=== PATIENT | female | born 2000 | race Caucasian/White ===

== ENCOUNTER 2020-01-28 11:48 | Inpatient (IN) ==
[2020-01-28] MEDS ORDERED: MEPERIDINE 50 MG/1 ML VIAL IV PRN (12:00)
[2020-01-28] MEDS ORDERED: miSOPROStoL 200 MCG TABLET PO ONE (12:18)
[2020-01-28] MEDS: LACTATED RINGERS 1,000 ML IV SCH ×2 (12:40→16:58)
[2020-01-28 12:49] LABS: Hematocrit 34.4 VOL% (35.7-47.0); Hemoglobin 11.6 GM/DL (12.0-16.0); Red Blood Count 3.77 MC/CUMM (3.8-5.5); White Blood Count 4.8 T/CUMM (4-12)
[2020-01-28 12:50] LABS: Basophils % 0.4 % (0.0-0.8); Eosinophils % 0.6 % (0.00-10.9); Immature Granulocytes % 2.5 %; Immature Granulocytes Absolute 0.12 #; Lymphocytes # 0.8 10*3/uL (1.4-4.0); Lymphocytes % 15.8 % (21.3-54.2); Mean Corpuscular HGB Conc 33.7 GM/DL (32-36); Mean Corpuscular Volume 91.2 FL (87-102); Mean Platelet Volume 9.3 FL (9.6-12.0); Monocytes % 5.8 % (1.7-12.7); Neutrophils % 74.9 % (38.7-73.9); Platelet Count 155 T/CUMM (130-400); Red Cell Distribution Width 13.2 % (9.3-17.3)
[2020-01-28 13:32] LABS: Alanine Aminotransferase 14 U/L (13-56); Albumin 3.2 G/DL (3.4-5.0); Alkaline Phosphatase 33 U/L (45-117); Aspartate Amino Transferase 11 U/L (0-37); Bilirubin,Total < 0.39 MG/DL (0.2-1.0); Blood Urea Nitrogen 5 MG/DL (7-18); Calcium 8.3 MG/DL (8.5-10.1); Estimated Glom Filtration Rate 140 ML/MIN; Glucose 89 MG/DL (74-106); Osmolality,Calculated 268.8 MOS/KG (273-304); Total Protein 6.7 G/DL (6.4-8.3); Uric Acid 2.2 MG/DL (2.6-6.0)
[2020-01-28] MEDS: miSOPROStoL 200 MCG TABLET PO SCH ×2 (16:59→20:54)
[2020-01-29] MEDS: miSOPROStoL 200 MCG TABLET PO SCH (00:57)
[2020-01-29] MEDS ORDERED: miSOPROStoL 200 MCG TABLET PO ONE ×3 (08:00→13:00)
[2020-01-29] MEDS: OXYTOCIN/LR 20 UNIT/1,000 ML BAG IV SCH (14:11)
[2020-01-29] MEDS: miSOPROStoL 200 MCG TABLET VAG SCH ×2 (18:11→22:04)
[2020-01-29] MEDS: ACETAMINOPHEN 500 MG TABLET PO PRN (19:22)
[2020-01-29] MEDS: LACTATED RINGERS 1,000 ML IV SCH (19:24)
[2020-01-30] MEDS: ACETAMINOPHEN 500 MG TABLET PO PRN (01:55)
[2020-01-30] MEDS: miSOPROStoL 200 MCG TABLET VAG SCH (01:55)
[2020-01-30] MEDS: ONDANSETRON 4 MG/2 ML VIAL IV PRN ×2 (03:11→09:00)
[2020-01-30] MEDS: BUTORPHANOL 2 MG/ML VIAL IV PRN ×2 (03:16→09:01)
[2020-01-30 03:36] LABS: Basophils % 0.4 % (0.0-0.8); Eosinophils % 0.4 % (0.00-10.9); Hematocrit 35.2 VOL% (35.7-47.0); Immature Granulocytes % 1.4 %; Immature Granulocytes Absolute 0.13 #; Lymphocytes # 1.4 10*3/uL (1.4-4.0); Lymphocytes % 15.3 % (21.3-54.2); Mean Corpuscular HGB Conc 34.1 GM/DL (32-36); Mean Platelet Volume 9.2 FL (9.6-12.0); Monocytes % 6.6 % (1.7-12.7); Neutrophils % 75.9 % (38.7-73.9); Platelet Count 172 T/CUMM (130-400); Red Blood Count 3.91 MC/CUMM (3.8-5.5); Red Cell Distribution Width 12.7 % (9.3-17.3); White Blood Count 9.4 T/CUMM (4-12)
[2020-01-30] MEDS: CLINDAMYCIN INJ 900 MG in PREMIX 1 EACH IV SCH ×3 (03:44→19:01)
[2020-01-30 03:48] LABS: Apearance,Urine CLEAR (Clear); Bacteria,Urine Occasional /HPF (Few); Bilirubin,Urine Negative (Negative); Blood, Urine Small mg/dL (Negative); Glucose,Urine (UA) Negative (Negative); Ketones,Urine 20 mg/dL (Negative); Mucus,Urine Occasional /LPF (Occasional); Nitrite,Urine Negative (Negative); Protein,Urine Negative; RBC,Urine <1 /HPF (0-4); Squamous Epithelial Cell,Urine Occasional /HPF (0-10); Urine Color Yellow (Yellow); Urine Specific Gravity 1.012 (1.001-1.035); Urine Urobilinogen < 2.0 EU/DL (0.2-1.0); WBC,Urine 1 /HPF (0-6)
[2020-01-30] MEDS ORDERED: miSOPROStoL 200 MCG TABLET VAG ONE (07:00)
[2020-01-30] MEDS: OXYTOCIN/LR 20 UNIT/1,000 ML BAG IV SCH (11:05)
[2020-01-30 14:06] LABS: Phospholipid Ab IgM, S < 9.4 MPL
[2020-01-31] MEDS: CLINDAMYCIN INJ 900 MG in PREMIX 1 EACH IV SCH (03:11)
[2020-01-31 04:50] LABS: Basophils % 0.3 % (0.0-0.8); Eosinophils # 0.1 10*3/uL (0.0-0.87); Eosinophils % 1.4 % (0.00-10.9); Hematocrit 32.4 VOL% (35.7-47.0); Hemoglobin 10.8 GM/DL (12.0-16.0); Immature Granulocytes Absolute 0.07 #; Lymphocytes # 1.3 10*3/uL (1.4-4.0); Mean Corpuscular HGB Conc 33.3 GM/DL (32-36); Mean Corpuscular Volume 91.5 FL (87-102); Mean Platelet Volume 9.1 FL (9.6-12.0); Monocytes % 5.9 % (1.7-12.7); Neutrophils % 73.4 % (38.7-73.9); Platelet Count 132 T/CUMM (130-400); Red Blood Count 3.54 MC/CUMM (3.8-5.5); Red Cell Distribution Width 13.2 % (9.3-17.3); White Blood Count 7.2 T/CUMM (4-12)
[2020-01-31] MEDS ORDERED: RHO(D) IMMUNE GLOBULIN 300 MCG SYRINGE IM ONE (07:16)
[2020-01-31 16:23] VITALS: BP 96/55
== END 2020-01-31 14:30 | disposition home or self-care (01) | DRG 807 ==
LOC: N.LDOUT 11:48 → N.LD 11:50 → N.OB 01-30 11:54
PROVIDERS: ADMIT Obstetrics & Gynecology; ATTEND Obstetrics & Gynecology

== ENCOUNTER 2021-01-15 10:13 | Inpatient (IN) ==
[2021-01-15] MEDS ORDERED: BUTORPHANOL 2 MG/ML VIAL IV PRN (10:45)
[2021-01-15] MEDS ORDERED: ONDANSETRON 4 MG/2 ML VIAL IV PRN ×2 (10:45→18:30)
[2021-01-15] MEDS ORDERED: LACTATED RINGERS 1,000 ML IV SCH (11:00)
[2021-01-15 11:10] LABS: Basophils % 0.5 % (0.0-0.8); Eosinophils % 0.4 % (0.00-10.9); Immature Granulocytes % 3.6 %; Immature Granulocytes Absolute 0.29 #; Lymphocytes # 1.3 10*3/uL (1.4-4.0); Lymphocytes % 16.3 % (21.3-54.2); Mean Corpuscular HGB Conc 31.4 GM/DL (32-36); Mean Corpuscular Volume 82.5 FL (87-102); Mean Platelet Volume 9.6 FL (9.6-12.0); Neutrophils % 73.2 % (38.7-73.9); Platelet Count 224 T/CUMM (130-400); Red Blood Count 4.24 MC/CUMM (3.8-5.5); Red Cell Distribution Width 14.3 % (9.3-17.3); White Blood Count 8.1 T/CUMM (4-12)
[2021-01-15] MEDS ORDERED: LACTATED RINGERS 1,000 ML IV ONE (11:13)
[2021-01-15] MEDS ORDERED: FAMOTIDINE 20 MG/2 ML VIAL IV ONE (11:13)
[2021-01-15] MEDS ORDERED: NALOXONE 0.4 MG/ML VIAL IV PRN (11:13)
[2021-01-15] MEDS ORDERED: ePHEDrine 50 MG/ML VIAL IV PRN (11:13)
[2021-01-15] MEDS ORDERED: CITRIC ACID/SODIUM CITRATE 30 ML UDCUP PO ONE (11:13)
[2021-01-15 11:28] LABS: Bilirubin,Total 0.5 MG/DL (0.2-1.0); Calcium 8.8 MG/DL (8.5-10.1); Osmolality,Calculated 266.1 MOS/KG (273-304); Potassium 3.8 MMOL/L (3.5-5.1); Total Protein 6.9 G/DL (6.4-8.2)
[2021-01-15] MEDS ORDERED: fentaNYL 2 MCG/ROPIV 0.2% EPID 100 ML EPIDURAL SCH (11:30)
[2021-01-15] MEDS ORDERED: OXYTOCIN/LR 20 UNIT/1,000 ML BAG IV SCH (15:18)
[2021-01-15] MEDS ORDERED: TRANEXAMIC ACID 1,000 MG/10 ML VIAL ONE (17:19)
[2021-01-15] MEDS ORDERED: miSOPROStoL 200 MCG TABLET ONE (17:19)
[2021-01-15] MEDS ORDERED: METHYLERGONOVINE 0.2 MG/1 ML AMP ONE (17:19)
[2021-01-15] MEDS ORDERED: CARBOPROST TROMETHAMINE 250 MCG/ML AMP IM ONE (17:19)
[2021-01-15 17:42] LABS: Bilirubin,Urine Negative (Negative); Blood, Urine Negative (Negative); Glucose,Urine (UA) Negative (Negative); Ketones,Urine 80 mg/dL (Negative); Mucus,Urine Many /LPF (Occasional); Nitrite,Urine Negative (Negative); Protein,Urine 100 MG/DL; RBC,Urine 3 /HPF (0-4); Squamous Epithelial Cell,Urine Occasional /HPF (0-10); Urine Appearance CLEAR (Clear); Urine Color Yellow (Yellow); Urine Specific Gravity 1.018 (1.001-1.035)
[2021-01-15 18:28] LABS: Cord Arterial Blood HCO3 20.8 MMOL/L
[2021-01-15] MEDS ORDERED: BISACODYL 10 MG SUPP RECTAL PRN (18:30)
[2021-01-15] MEDS ORDERED: DIPH/TET/ACEL PERT BOOSTER VACCINE 0.5 ML VIAL IM ONE (18:30)
[2021-01-15] MEDS ORDERED: ACETAMINOPHEN 325 MG TABLET PO PRN (18:30)
[2021-01-15] MEDS ORDERED: BENZOCAINE 20%/MENTHOL 0.5% SPRAY 56 GM CAN TOP PRN (18:30)
[2021-01-15] MEDS ORDERED: RHO(D) IMMUNE GLOBULIN 300 MCG SYRINGE IM ONE (18:30)
[2021-01-15] MEDS ORDERED: OXYTOCIN/LR 20 UNIT/1,000 ML BAG IV ONE (18:30)
[2021-01-15] MEDS ORDERED: HYDROCORTISONE 2.5% RECTAL CREAM 30 GM TUBE TOP PRN (18:30)
[2021-01-15] MEDS ORDERED: WITCH HAZEL PADS 100/JAR TOP PRN (18:30)
[2021-01-15] MEDS ORDERED: MEASLES/MUMPS/RUBELLA VACCINE 0.5 ML VIAL SUBCUT ONE (18:30)
[2021-01-15] MEDS ORDERED: LANOLIN 50% CREAM 0.3 OZ TUBE TOP PRN (18:30)
[2021-01-15] MEDS ORDERED: oxyCODONE/ACETAMINOPHEN 5-325 MG TABLET PO PRN ×2 (18:30)
[2021-01-15 18:32] LABS: Cord Venous Blood PCO2 41.5 MMHG
[2021-01-15] MEDS: DOCUSATE SODIUM 100 MG CAPSULE PO SCH (21:56)
[2021-01-16 06:32] LABS: Basophils # 0.1 10*3/uL (0.0-0.2); Basophils % 0.4 % (0.0-0.8); Eosinophils % 0.3 % (0.00-10.9); Immature Granulocytes % 2.4 %; Immature Granulocytes Absolute 0.32 #; Lymphocytes # 1.8 10*3/uL (1.4-4.0); Mean Corpuscular HGB Conc 31.3 GM/DL (32-36); Mean Corpuscular Volume 84.9 FL (87-102); Mean Platelet Volume 10.2 FL (9.6-12.0); Monocytes % 7.4 % (1.7-12.7); Neutrophils % 76.5 % (38.7-73.9); Platelet Count 225 T/CUMM (130-400); Red Blood Count 3.77 MC/CUMM (3.8-5.5); Red Cell Distribution Width 14.4 % (9.3-17.3); White Blood Count 13.6 T/CUMM (4-12)
[2021-01-16] MEDS: DOCUSATE SODIUM 100 MG CAPSULE PO SCH ×2 (09:33→20:38)
[2021-01-16] MEDS: IBUPROFEN 800 MG TABLET PO PRN ×3 (09:33→15:57)
[2021-01-16] MEDS ORDERED: RHO(D) IMMUNE GLOBULIN 300 MCG SYRINGE IM ONE (15:30)
[2021-01-17] MEDS: IBUPROFEN 800 MG TABLET PO PRN (05:26)
[2021-01-17] MEDS: DOCUSATE SODIUM 100 MG CAPSULE PO SCH (08:53)
[2021-01-17 12:54] VITALS: BP 107/64
== END 2021-01-17 13:00 | disposition home or self-care (01) | DRG 806 ==
LOC: N.LDOUT 10:13 → N.LD 10:13 → N.OB 21:10
PROVIDERS: ADMIT Obstetrics & Gynecology; ATTEND Obstetrics & Gynecology